=== PATIENT | male | born 1965 | race Caucasian/White ===

== ENCOUNTER → 2018-02-13 | Outpatient (CLI) | payer BC ==
--- NOTE | 2018-02-13 13:30 | XR ---
Left hip HISTORY: Left hip pain, osteoarthritis 2 views of the left hip There is prominence of the region of the left femoral neck. Question some mild joint space loss. Alig nment and bone mineralization are maintained. No fracture or dislocation. IMPRESSION: Findings suggest osteoarthritis, there may be a component of femoral acetabular impingeme nt, correlate.
== END | disposition home or self-care (01) ==
LOC: RADXRMAIN 11:58
PROVIDERS: ATTEND Family Medicine
DX: M19.049 Primary osteoarthritis, unspecified hand (principal)
CPT/HCPCS: 73502

== ENCOUNTER → 2022-04-24 | Outpatient (CLI) | payer OTHER ==
--- NOTE | 2022-04-24 17:26 | MR ---
EXAMINATION TYPE: MR knee RT wo con DATE OF EXAM: 04/24/2022 COMPARISON: None HISTORY: Right knee pain. Multiplanar multiecho imaging of the right knee with no contrast. The anterior and posterior cruciate ligaments are intact. There is small knee joint effusion. The col lateral ligaments are intact. There are small tear on the inferior surface of the posterior horn of t he lateral meniscus. There is horizontal and vertical tear in the posterior horn of the medial menisc us. There is some narrowing of the medial meniscus. There is thinning and vertical tear in the anteri or horn of the medial meniscus. There is narrowing of the medial joint space. No fracture seen. There is minor spurring of the medial femoral and tibial condyles. The patella is intact. IMPRESSION: Degenerative thinning and complex tears of the anterior posterior horn of the medial meniscus. Osteoa rthritis in the medial joint space. Small tear on the inferior surface posterior horn of the lateral meniscus. No evidence of ligamentous tear. Small joint effusion.
== END | disposition home or self-care (01) ==
LOC: RADMRIMAIN 13:55
PROVIDERS: ATTEND Orthopaedic Surgery
DX: S83.241A Other tear of medial meniscus, current injury, right knee, initial encounter (principal); M25.461 Effusion, right knee; M17.11 Unilateral primary osteoarthritis, right knee; X58.XXXA Exposure to other specified factors, initial encounter

== ENCOUNTER → 2022-07-02 | Outpatient (CLI) | payer OTHER ==
[2022-07-02 15:10] LABS: HGB 14.3 g/dL (13.0-17.0); MCH 30.9 pg (27.0-32.0); MCHC 32.5 g/dL (32.0-37.0); Mean Platelet Volume 11.3 fL (9.5-12.2); NRBC Per 100 WBC 0 /100 WBCS (0.0-0.0); Platelet Count 189 X 10*3/uL (140-440); RBC 4.63 X 10*6/uL (4.40-5.60); RDW 13.9 % (11.5-14.5); WBC 7.06 X 10*3/uL (4.50-10.00)
[2022-07-02 16:02] LABS: African American GFR (CKD) 119.7 (60.0-200.0); Anion Gap 8.7 mmol/L (10.00-18.00); Blood Urea Nitrogen 17.5 mg/dL (9.0-27.0); Calcium 9.2 mg/dL (8.7-10.3); Carbon Dioxide 27.3 mmol/L (20.0-27.5); Non-African American GFR(CKD) 103.3 (60.0-200.0); Potassium 4.1 mmol/L (3.5-5.5)
== END | disposition home or self-care (01) ==
LOC: LABWHC1 08:43
PROVIDERS: ATTEND Internal Medicine Cardiovascular Disease
DX: I10 Essential (primary) hypertension (principal)
CPT/HCPCS: 36415; 80048; 82088; 82533; 84244; 84443; 85027